=== PATIENT | female | born 1955 | race Caucasian/White ===

== ENCOUNTER 2018-04-29 23:02 | Inpatient (IN) | payer OTHER ==
[~2018-04-29] VITALS: Ht 154.9 cm; Wt 76.9 kg
[~2018-04-29 23:02] MED LIST: APR25 PO; APR50 NG; ASP325 NG; CARVEDILOL6.25 M1 PO; CORE25 NG; FUROSEMIDE40 MG PO; ISO10 PO; LASIX20 MG PO; LIPITOR80 MG NG; LISINOPRIL10 MG PO; LISINOPRIL40 MG PO; SIMVASTATIN20 M1 PO; SYN25 PO; VITAMIN D2400 I1 PO; XANAX0.5 MG PO; ZES20 NG; ZESTRIL20 MG PO
[2018-04-29 23:06] VITALS: Ht 154.9 cm; Wt 76.9 kg
[2018-04-30] VITALS (7 sets, daily range): BP systolic 103–176; BP diastolic 57–103
[2018-04-30 00:15] LABS: BASOPHIL % 1.5 % (0-2); PLATELET COUNT 266 x10^3mcL (130-400); RED CELL DISTRIBUTION WIDTH 13.9 % (11.5-14.5)
[2018-04-30 00:24] LABS: CALCIUM 8.8 mg/dL (8.5-10.1); CARBON DIOXIDE 24.6 mmol/L (21-32); CREATININE SERUM 1.5 mg/dL (0.6-1.0)
[2018-04-30 00:28] LABS: ALBUMIN 3.5 g/dL (3.4-5.0); BILIRUBIN TOTAL 0.3 mg/dL (0.20-1.00); TOTAL PROTEIN, SERUM 7.8 g/dL (6.4-8.2)
[2018-04-30] MEDS ORDERED: APR25 PO (02:57)
[2018-04-30 03:01] LABS: MAGNESIUM 2.3 mg/dL (1.8-2.4); PHOSPHOROUS 4.4 mg/dL (2.5-4.9)
[2018-04-30 03:03] LABS: T3 TOTAL 1.16 ng/mL
[2018-04-30 03:07] LABS: FREE T4 1.08 ng/dL (0.76-1.46); FREE THYROXINE INDEX 2.7 ug/dL (1.4-4.5); T4(THYROXINE) 8.5 ug/dL (4.7-13.3)
[2018-04-30 03:47] LABS: CHOLESTEROL/HDL RATIO 3.8
[2018-04-30 04:12] LABS: UA SPECIFIC GRAVITY <=1.005 (1.005-1.035); microscopic required? YES; urine erythrocyte 1+ (NEGATIVE)
[2018-04-30 04:28] LABS: AMPHETAMINE QUAL UR NONE DETECTED (NEG <=1000)
[2018-04-30 06:56] LABS: CALCIUM 8.8 mg/dL (8.5-10.1); CARBON DIOXIDE 23.5 mmol/L (21-32); CREATININE SERUM 1.4 mg/dL (0.6-1.0); POTASSIUM SERUM 4.1 mmol/L (3.5-5.1)
[2018-04-30 07:02] LABS: BASOPHIL % 0.5 % (0-2); PLATELET COUNT 268 x10^3mcL (130-400); RED CELL DISTRIBUTION WIDTH 14.1 % (11.5-14.5)
[2018-05-01 05:42] VITALS: BP 170/88
[2018-05-01 06:16] LABS: BASOPHIL % 0.7 % (0-2); PLATELET COUNT 235 x10^3mcL (130-400); RED CELL DISTRIBUTION WIDTH 14.1 % (11.5-14.5)
[2018-05-01 06:40] LABS: CALCIUM 8.1 mg/dL (8.5-10.1); CARBON DIOXIDE 23.3 mmol/L (21-32); CREATININE SERUM 1.5 mg/dL (0.6-1.0); PHOSPHOROUS 4.3 mg/dL (2.5-4.9); POTASSIUM SERUM 4.2 mmol/L (3.5-5.1)
[2018-05-01 08:45] VITALS: BP 162/79
[2018-05-01 15:09] VITALS: BP 175/84
[2018-05-01 17:27] VITALS: BP 167/82
[2018-05-01 21:49] VITALS: BP 176/89
[2018-05-02 05:46] VITALS: BP 140/72
[2018-05-02 06:21] LABS: CALCIUM 8.2 mg/dL (8.5-10.1); CREATININE SERUM 1.6 mg/dL (0.6-1.0); POTASSIUM SERUM 3.8 mmol/L (3.5-5.1)
[2018-05-02 08:11] LABS: BASOPHIL % 0.5 % (0-2); PLATELET COUNT 226 x10^3mcL (130-400); RED CELL DISTRIBUTION WIDTH 14.1 % (11.5-14.5)
[2018-05-02 08:40] VITALS: BP 121/62
[2018-05-02 12:02] VITALS: BP 148/72
[2018-05-02] MEDS ORDERED: APR50 PO (15:07)
[2018-05-02] MEDS ORDERED: NOR10 PO (15:19)
[2018-05-02 15:44] VITALS: BP 140/80
[2018-05-02 16:28] VITALS: BP 140/80
[2018-05-02] MEDS ORDERED: FLO4 PO (17:03)
== END 2018-05-02 17:26 | disposition home or self-care (01) | DRG 438 ==
LOC: ED 23:02 → DU 04-30 02:03
PROVIDERS: Emergency Medicine; Family Medicine
DX: K85.90 Acute pancreatitis without necrosis or infection, unspecified (principal); N17.0 Acute kidney failure with tubular necrosis; I67.4 Hypertensive encephalopathy; N39.0 Urinary tract infection, site not specified; E87.1 Hypo-osmolality and hyponatremia; R31.9 Hematuria, unspecified; R73.03 Prediabetes; E78.5 Hyperlipidemia, unspecified; F41.1 Generalized anxiety disorder; D64.9 Anemia, unspecified; R80.9 Proteinuria, unspecified; N28.1 Cyst of kidney, acquired; E66.9 Obesity, unspecified; Z68.32 Body mass index [BMI] 32.0-32.9, adult
CPT/HCPCS: 83880; 84439; G0480; J0360; J0696; J7030; Q0092; Q9967

== ENCOUNTER 2019-02-02 15:56 | Emergency (ER) | payer OTHER ==
[~2019-02-02] VITALS: Ht 152.4 cm; Wt 77.1 kg
[~2019-02-02 15:56] MED LIST changes: +APR50 PO; +FLO4 PO; +NOR10 PO
[2019-02-02 16:28] VITALS: BP 188/116; Ht 152.4 cm; Wt 77.1 kg
[2019-02-03] MEDS ORDERED: UNKNOWN BP MED (10:06)
[2019-02-03] MEDS ORDERED: [UNRECOGNIZED DRUG - REMARK] (10:06)
[2019-02-03] MEDS ORDERED: TRAZODONE50 M1 PO (10:19)
[2019-02-03] MEDS ORDERED: CARVEDILOL25 M1 PO (10:19)
[2019-02-03] MEDS ORDERED: FUROSEMIDE40 MG PO (10:20)
[2019-02-03] MEDS ORDERED: HYDRALAZINE HCL50 MG PO (10:21)
== END 2019-02-02 18:38 | disposition home or self-care (01) ==
LOC: ED 15:56
DX: Z53.21 Procedure and treatment not carried out due to patient leaving prior to being seen by health care provider (principal)

== ENCOUNTER 2019-02-03 06:27 | Inpatient (IN) | payer OTHER, MEDICAID | END 2019-02-04 14:40 | disposition home or self-care (01) | LOC: ED 06:27 → IC 10:06 → ED 06:27 → IC 10:45 → ED 06:27 → IC 10:06 → ED 06:27 → IC 10:06 → ED 06:27 → IC 10:06 → ED 06:27 → IC 10:06 → MU 10:06 → IC 10:06 → MU 10:51 → IC 02-04 14:40 → MU 10:06 → IC 18:05 | PROC: 0DTJ4ZZ Resection of Appendix, Percutaneous Endoscopic Approach (ICD-10-PCS; principal; 2019-02-03 14:30) | DX: K35.80 Unspecified acute appendicitis (principal); N17.9 Acute kidney failure, unspecified; I10 Essential (primary) hypertension; E86.0 Dehydration ==

== ENCOUNTER 2019-03-16 02:35 | Inpatient (IN) | payer OTHER, MEDICAID ==
[~2019-03-16] VITALS: Ht 162.6 cm; Wt 68.9 kg
[~2019-03-16 02:35] MED LIST changes: +CARVEDILOL25 M1 PO; +HYDRALAZINE HCL50 MG PO; +TRAZODONE50 M1 PO; +UNKNOWN BP MED; +[UNRECOGNIZED DRUG - REMARK]
[2019-03-16 02:47] VITALS: Ht 162.6 cm; Wt 68.9 kg
[2019-03-16 04:17] LABS: BASOPHIL % 0.5 % (0-2); PLATELET COUNT 283 x10^3mcL (130-400)
[2019-03-16 04:24] LABS: CALCIUM 8.9 mg/dL (8.5-10.1); CARBON DIOXIDE 26.4 mmol/L (21-32); CREATININE SERUM 1.5 mg/dL (0.6-1.0); POTASSIUM SERUM 3.3 mmol/L (3.5-5.1)
[2019-03-16 04:28] LABS: ALBUMIN 3.4 g/dL (3.4-5.0); BILIRUBIN TOTAL 0.28 mg/dL (0.20-1.00); TOTAL PROTEIN, SERUM 8.1 g/dL (6.4-8.2)
[2019-03-16] MEDS ORDERED: VYVANSE40 MG PO (05:07)
[2019-03-16] MEDS ORDERED: NORCO1 TA2 PO (05:08)
[2019-03-16 08:26] VITALS: BP 181/80
[2019-03-16 12:00] VITALS: BP 165/78
[2019-03-16 14:00] VITALS: BP 161/96
[2019-03-16 16:50] VITALS: BP 164/79
== END 2019-03-16 18:30 | disposition home or self-care (01) | DRG 880 ==
LOC: ED 02:35 → DU 06:52
PROVIDERS: Emergency Medicine; ADMIT Internal Medicine Pulmonary Disease
DX: F41.9 Anxiety disorder, unspecified (principal); I16.0 Hypertensive urgency; I25.10 Atherosclerotic heart disease of native coronary artery without angina pectoris; Z79.82 Long term (current) use of aspirin; Z87.442 Personal history of urinary calculi; Z68.26 Body mass index [BMI] 26.0-26.9, adult; Z95.5 Presence of coronary angioplasty implant and graft; Z91.14 Patient's other noncompliance with medication regimen
CPT/HCPCS: J3490; Q0092

== ENCOUNTER 2019-08-13 04:36 | Emergency (ER) | payer OTHER, MEDICAID ==
[~2019-08-13] VITALS: Ht 152.4 cm; Wt 78.0 kg
[~2019-08-13 04:36] MED LIST changes: +NORCO1 TA2 PO; +VYVANSE40 MG PO
[2019-08-13 04:41] VITALS: Ht 152.4 cm; Wt 78.0 kg
[2019-08-13 05:18] LABS: BASOPHIL % 0.5 % (0-2); PLATELET COUNT 276 x10^3mcL (130-400); RED CELL DISTRIBUTION WIDTH 14.2 % (11.5-14.5)
[2019-08-13 05:25] LABS: CALCIUM 8.9 mg/dL (8.5-10.1); CARBON DIOXIDE 20.6 mmol/L (21-32); CREATININE SERUM 1.4 mg/dL (0.6-1.0); POTASSIUM SERUM 4.2 mmol/L (3.5-5.1)
[2019-08-13 05:29] LABS: ALBUMIN 3.7 g/dL (3.4-5.0); BILIRUBIN TOTAL 0.25 mg/dL (0.20-1.00)
[2019-08-13 05:30] LABS: TOTAL PROTEIN, SERUM 8.7 g/dL (6.4-8.2)
[2019-08-13 06:02] VITALS: BP 147/75
== END 2019-08-13 06:24 | disposition home or self-care (01) ==
LOC: ED 04:36
PROVIDERS: Emergency Medicine
DX: R10.9 Unspecified abdominal pain (principal); I12.0 Hypertensive chronic kidney disease with stage 5 chronic kidney disease or end stage renal disease; N18.6 End stage renal disease; I11.0 Hypertensive heart disease with heart failure; I50.9 Heart failure, unspecified; F41.9 Anxiety disorder, unspecified; Z90.49 Acquired absence of other specified parts of digestive tract; Z87.442 Personal history of urinary calculi
CPT/HCPCS: J3490; Q0092

== ENCOUNTER 2019-09-07 03:20 | Emergency (ER) | payer OTHER, MEDICAID ==
[~2019-09-07] VITALS: Ht 149.9 cm; Wt 80.7 kg
[2019-09-07 03:23] VITALS: Ht 149.9 cm; Wt 80.7 kg
[2019-09-07 04:20] LABS: BASOPHIL % 0.7 % (0-2); PLATELET COUNT 288 x10^3mcL (130-400); RED CELL DISTRIBUTION WIDTH 14.1 % (11.5-14.5)
[2019-09-07 04:35] LABS: ALBUMIN 3.8 g/dL (3.4-5.0); BILIRUBIN TOTAL 0.2 mg/dL (0.20-1.00); CALCIUM 8.5 mg/dL (8.5-10.1); CARBON DIOXIDE 22.5 mmol/L (21-32); CREATININE SERUM 1.7 mg/dL (0.6-1.0); POTASSIUM SERUM 3.4 mmol/L (3.5-5.1); TOTAL PROTEIN, SERUM 8.5 g/dL (6.4-8.2)
[2019-09-07 06:39] VITALS: BP 169/94
== END 2019-09-07 06:39 | disposition home or self-care (01) ==
LOC: ED 03:20
PROVIDERS: Emergency Medicine
DX: I11.0 Hypertensive heart disease with heart failure (principal); I50.9 Heart failure, unspecified; F41.9 Anxiety disorder, unspecified; Z90.89 Acquired absence of other organs; Z87.442 Personal history of urinary calculi
CPT/HCPCS: 36415; Q0092

== ENCOUNTER 2019-10-25 09:32 | Emergency (ER) | payer OTHER, MEDICAID ==
[2019-10-25 10:53] LABS: CALCIUM 8.6 mg/dL (8.5-10.1); CARBON DIOXIDE 19.5 mmol/L (21-32); CREATININE SERUM 1.6 mg/dL (0.6-1.0); POTASSIUM SERUM 3.9 mmol/L (3.5-5.1)
[2019-10-25 10:58] LABS: BILIRUBIN TOTAL 0.3 mg/dL (0.20-1.00); TOTAL PROTEIN, SERUM 7.7 g/dL (6.4-8.2)
[2019-10-25 10:59] LABS: BASOPHIL % 0.9 % (0-2); PLATELET COUNT 254 x10^3mcL (130-400); RED CELL DISTRIBUTION WIDTH 13.6 % (11.5-14.5)
[2019-10-25 11:01] LABS: ALBUMIN 3.3 g/dL (3.4-5.0)
[2019-10-25 11:35] LABS: microscopic required? YES; urine erythrocyte TRACE (NEGATIVE)
[2019-10-25 13:00] VITALS: BP 165/78
== END 2019-10-25 13:00 | disposition home or self-care (01) ==
LOC: ED 09:32
PROVIDERS: Emergency Medicine
DX: K85.90 Acute pancreatitis without necrosis or infection, unspecified (principal); I11.0 Hypertensive heart disease with heart failure; I50.9 Heart failure, unspecified; F41.9 Anxiety disorder, unspecified; Z90.89 Acquired absence of other organs; Z87.442 Personal history of urinary calculi
CPT/HCPCS: J1885; J2405; J7030; Q0092

== ENCOUNTER 2020-02-02 04:42 | Emergency (ER) | payer OTHER, MEDICAID ==
[~2020-02-02] VITALS: Ht 154.9 cm; Wt 79.4 kg
[2020-02-02 04:43] VITALS: Ht 154.9 cm; Wt 79.4 kg
[2020-02-02 06:54] VITALS: BP 151/77
== END 2020-02-02 06:54 | disposition home or self-care (01) ==
LOC: ED 04:42
DX: S93.602A Unspecified sprain of left foot, initial encounter (principal); I50.9 Heart failure, unspecified; I10 Essential (primary) hypertension; Z90.89 Acquired absence of other organs; Z87.442 Personal history of urinary calculi; X58.XXXA Exposure to other specified factors, initial encounter; Y93.89 Activity, other specified; Y92.89 Other specified places as the place of occurrence of the external cause; Y99.8 Other external cause status
CPT/HCPCS: J1885; Q0092